=== PATIENT | male | born 2000 | race Caucasian/White ===

== ENCOUNTER 2023-08-01 20:38 | Emergency (ER) | payer OTHER ==
[~2023-08-01] VITALS: Ht 172.7 cm; Wt 99.7 kg
[2023-08-01 20:39] VITALS: BP 137/72; TEMP 98.4; O2SAT 96
[2023-08-01] MEDS ORDERED: ACET-910 PO (20:48)
[2023-08-01] MEDS ORDERED: BENZ200C70 PO (20:48)
[2023-08-01] MEDS ORDERED: ONDA4TAB6 PO (20:48)
[2023-08-01] MEDS ORDERED: IBUPOTC PO (20:48)
[2023-08-01] MEDS ORDERED: HYDR1SYP7 PO (22:18)
[2023-08-01] MEDS ORDERED: VENTAER INH (22:18)
[2023-08-01] MEDS: HYDROcodone/APAP LIQUID 7.5-325MG 15ML UDC (LORTAB ELIXIR) PO ONE (22:20)
[2023-08-01] MEDS: ALBUTEROL 90 MCG/ACT 8GM HFA INHALER INH ONE (22:23)
== END 2023-08-01 22:31 | disposition home or self-care (01) ==
LOC: M ED 20:38
DX: J12.3 Human metapneumovirus pneumonia (principal); Z87.891 Personal history of nicotine dependence; Z79.1 Long term (current) use of non-steroidal anti-inflammatories (NSAID); Z79.51 Long term (current) use of inhaled steroids; Z79.899 Other long term (current) drug therapy